=== PATIENT | female | born 1935 | race African-American/Black ===

== ENCOUNTER 2019-09-05 16:03 | Emergency (ER) | payer OTHER ==
[2019-09-05 16:09] VITALS: TEMP 98.3; BMI 36.6
--- NOTE | 2019-09-05 16:49 | PDOC ---
History of Present Illness - General Chief Complaint: Eye Problem Stated Complaint: RIGHT EYE REDNESS/ITCHING Time Seen by Provider: 09/05/19 16:27 History Source: Patient Exam Limitations: No Limitations - History of Present Illness Initial Comments: 09/05/19 16:46 83y F hx of asthma, htn, presenst with complaint of swollen, itchy R eye. it started off with itchiness for 4 days but then started with swelling. Pt had seen her PMD who gave her some antihistamines without significant improvement. She endorses some discharge/crusting when she wakes up in the morning. She endorses nasal congestion but denies any fever/chllls, coughs, body aches, vision changes. Denies any pain, photophobia. Does not wear corrective lenses. No sick contacts Is this a multiple visit Asthma Patient?: Yes Past History - Past Medical History Allergies/Adverse Reactions: Allergies Allergy/AdvReac Type Severity Reaction Status Date / Time No Known Drug Allergies Allergy Verified 09/05/19 16:06 Home Medications: Ambulatory Orders Buspirone HCl [Buspar -] 10 mg PO ASDIR 03/19/15 Albuterol Sulfate [Proair Hfa -] 1 - 2 inh PO Q6H PRN 06/18/15 Atorvastatin Calcium [Lipitor] 10 mg PO DAILY 09/05/19 Carvedilol 3.125 mg PO DAILY 09/05/19 Isosorbide Mononitrate [Isosorbide Mononitrate ER] 30 mg PO DAILY 09/05/19 Meloxicam [Mobic (Nf) -] 15 mg PO DAILY 09/05/19 Meloxicam [Mobic (Nf) -] 15 mg PO DAILY 09/05/19 Montelukast Na [Singulair -] 10 mg PO HS 09/05/19 Polymyxin B Sulf/Trimethoprim [Polymyxin B-Tmp Eye Drops] 1 - 2 drop OU QID #10 ml 09/05/19 Anemia: Yes Asthma: Yes COPD: No CHF: No GI Disorders: Yes HTN: Yes Hypercholesterolemia: Yes Thyroid Disease: No - Psycho Social/Smoking Cessation Hx Smoking History: Never smoked Have you smoked in the past 12 months: No Hx Alcohol Use: No Drug/Substance Use Hx: No Substance Use Type: None Review of Systems - Review of Systems Able to Perform ROS?: Yes Comments:: 09/05/19 17:07 Constitutional - no reported Fever, Chills, HEENT: +eye redness/dischargen/itching no reported vision changes, sore throat Respiratory: no reported cough, sob, hemoptysis Abd/GI: no reported abd pain, nausea, vomiting, skin - no reported bruising, erythema, rash neurological: no reported headache, n *Physical Exam - Vital Signs Last Vital Signs Temp Pulse Resp BP Pulse Ox 98.3 F 63 18 188/115 H 100 09/05/19 16:04 09/05/19 16:04 09/05/19 16:04 09/05/19 16:04 09/05/19 16:04 - Physical Exam Comments: 09/05/19 17:08 GENERAL: The patient is awake, alert, and fully oriented, Nontoxic - in no acute distress. HEAD: Normocephalic, atraumatic. EYES: Injected conjunctive a on right eye, With some crusting. EOMI, visual montalvo intact by confrontation. Mild injection on left conjucntiva ENT: Normal voice, Moist mucous membranes. NECK: Normal range of motion, supple, No cervical lymphadenopathy Medical Decision Making - Medical Decision Making 09/05/19 17:09 We will treat the patient for conjunctivitis with Polytrim. Supportive care at home, Ophtho follow-up if not improved within 3 to 4 days. I discussed the physical exam findings, ancillary test results and final diagnoses with the patient. I answered all of the patient's questions. The patient was satisfied with the care received and felt comfortable with the discharge plan and treatment plan. The patient will call their primary care physician within 24 hours to arrange follow-up and will return to the Emergency Department with any new, persistent or worsening symptoms. 09/05/19 17:13 Not asthma or complaint 09/05/19 17:25 pt noted hypertensive. will give her he revening dose of enalipril Discharge - Discharge Information Problems reviewed: Yes Clinical Impression/Diagnosis: Conjunctivitis Qualifiers: Conjunctivitis type: acute Acute conjunctivitis type: bacterial Laterality: bilateral Qualified Code(s): H10.33 - Unspecified acute conjunctivitis, bilateral Condition: Stable Disposition: HOME - Admission No - Additional Discharge Information Prescriptions: Polymyxin B Sulf/Trimethoprim [Polymyxin B-Tmp Eye Drops] 1 - 2 drop OU QID #10 ml - Follow up/Referral Referrals: Niraj Guerrero MD [Staff Physician] - - Patient Discharge Instructions Patient Printed Discharge Instructions: DI for Conjunctivitis Additional Instructions: Return to the emergency department immediately with ANY new, persistent or worsening symptoms incluing headache, fevers, blurry vision, eye pain or any other concerns. Apply a warm wai to your eye and wipe away and discharge. Use the eye drops as prescribed for 7-10 days. You MUST call and follow up with an eye doctor if symptmos are not improved within 4-5 days for further evaluation of your symptoms. Results were discussed with you. Please make sure your doctor reviews the results of your emergency evaluation. Your Emergency Department visit is not complete without a follow up with your doctor. Print Language: [id number] - Post Discharge Activity
[2019-09-05] MEDS ORDERED: ENALAPRIL MALEATE 10 MG TABLET (FP) PO ONE (17:25)
[2019-09-05 18:20] VITALS: BP 188/90; PULSE 65
== END 2019-09-05 18:21 | disposition home or self-care (01) ==
LOC: FER 16:03
DX: H10.33 Unspecified acute conjunctivitis, bilateral (principal); J45.909 Unspecified asthma, uncomplicated; I10 Essential (primary) hypertension; K92.9 Disease of digestive system, unspecified; E78.00 Pure hypercholesterolemia, unspecified
CPT/HCPCS: 99282-25

== ENCOUNTER 2023-01-24 11:41 | Inpatient (IN) | payer OTHER ==
[2023-01-24] MEDS ORDERED: ASPIRIN 81 MG CHEWABLE TABLETS PO ONE (11:44)
[2023-01-24] MEDS ORDERED: SODIUM CHLORIDE 1,000 ML IV SCH ×2 (11:45)
[2023-01-24] MEDS ORDERED: ASPIRIN 81 MG CHEWABLE TABLETS ONE (12:16)
[2023-01-24 12:31] LABS: BASO % 0.4 % (0-2.0); EOS % 1.2 % (0-4.5); HEMATOCRIT 30.7 % (32.4-45.2); HEMOGLOBIN 9.8 GM/dL (10.7-15.3); LYMPH % 35.4 % (8-40); MCH 25.6 pg (25.7-33.7); MEAN PLT VOLUME 6.8 fl (7.5-11.1); MONO % 9.9 % (3.8-10.2); NEUT % 53.1 % (42.8-82.8); PLATELET COUNT 442 10^3/uL (134-434); RBC 3.84 M/mm3 (3.60-5.2); RDW 17.3 % (11.6-15.6); WHITE BLOOD COUNT 7.5 K/mm3 (4.0-10.0)
[2023-01-24 12:39] LABS: INR 1.03 (0.83-1.09)
[2023-01-24 12:41] LABS: ACTIVATED PTT 29.6 SECONDS (25.2-36.5)
[2023-01-24 12:47] LABS: CHLORIDE 112 mmol/L (98-107); SODIUM 144 mmol/L (136-145)
[2023-01-24 12:49] LABS: ANION GAP 6 MMOL/L (8-16); CALCIUM 8.6 mg/dL (8.5-10.1); CO2 26 mmol/L (21-32)
[2023-01-24 12:51] LABS: BLOOD UREA NITROGEN 27.7 mg/dL (7-18); GLUCOSE,RANDOM 154 mg/dL (74-106)
[2023-01-24 12:53] LABS: CREATININE 1.8 mg/dL (0.55-1.3); SGOT/AST 15 U/L (15-37); SGPT/ALT 11 U/L (13-61)
[2023-01-24 12:54] LABS: CHOLESTEROL 174 mg/dL (50-200); TOT PROT 6.8 g/dl (6.4-8.2); TRIGLYCERIDES 133 mg/dL (0-150)
[2023-01-24 12:55] LABS: BILIRUBIN,TOTAL 0.4 mg/dL (0.2-1); LDL CHOLESTEROL (ONLY SJRH) 88 mg/dL (5-100)
[2023-01-24 12:57] LABS: ALK PHOS 129 U/L (45-117); HDL CHOLESTEROL 67 mg/dL (40-60)
[2023-01-24 14:03] LABS: EPI CELLS 9 /uL (0-25.1); HYALINE CASTS 0 /uL (0-3.1); PH,URINE 7.5 (5.0-8.0); URINE APPEARANCE CLOUDY; URINE BACTERIA 6030 /uL (0-1359); URINE BILIRUBIN NEGATIVE (NEGATIVE); URINE COLOR YELLOW; URINE GLUCOSE (UA) NEGATIVE (NEGATIVE); URINE KETONE NEGATIVE (NEGATIVE); URINE LEUK ESTERASE 3+ (NEGATIVE); URINE NITRITE POSITIVE (NEGATIVE); URINE PROTEIN TRACE (NEGATIVE); URINE RBC 14 /uL (0-23.9); URINE UROBILINOGEN 0.2 mg/dL (0.2-1.0); URINE WBC 161 /uL (0-25.8)
[2023-01-24] MEDS ORDERED: CEFTRIAXONE 1,000 MG in DEXTROSE 5%-WATER - 50 ML IVPB ONE (15:00)
[2023-01-24] MEDS ORDERED: CEFTRIAXONE 1 GM/50 ML BAG ONE (15:09)
[2023-01-24] MEDS ORDERED: DOCUSATE SODIUM 100 MG CAPSULE (FP) PO PRN (22:31)
[2023-01-25 08:07] LABS: BASO % 0.5 % (0-2.0); EOS % 2.1 % (0-4.5); HEMATOCRIT 30.1 % (32.4-45.2); HEMOGLOBIN 9.7 GM/dL (10.7-15.3); LYMPH % 32.1 % (8-40); MCH 25.8 pg (25.7-33.7); MCHC 32.1 g/dl (32.0-36.0); MEAN CELL VOLUME 80.5 fl (80-96); MEAN PLT VOLUME 7.1 fl (7.5-11.1); MONO % 12.5 % (3.8-10.2); NEUT % 52.8 % (42.8-82.8); PLATELET COUNT 413 10^3/uL (134-434); RBC 3.74 M/mm3 (3.60-5.2); RDW 17.5 % (11.6-15.6); WHITE BLOOD COUNT 7.2 K/mm3 (4.0-10.0)
[2023-01-25 08:28] LABS: CALCIUM 8.9 mg/dL (8.5-10.1)
[2023-01-25 08:29] LABS: BLOOD UREA NITROGEN 23.9 mg/dL (7-18)
[2023-01-25 08:31] LABS: BILIRUBIN,TOTAL 0.3 mg/dL (0.2-1); TOT PROT 6.6 g/dl (6.4-8.2)
[2023-01-25 08:32] LABS: CREATININE 1.5 mg/dL (0.55-1.3)
[2023-01-25] MEDS: CEFTRIAXONE 1 GM in DEXTROSE 5%-WATER - 50 ML IVPB SCH (09:41)
[2023-01-25] MEDS: ATORVASTATIN CA 40 MG TABLET (FP) PO SCH (09:42)
[2023-01-25] MEDS: ISOSORBIDE MONONITRATE 30 MG TAB.SR.24H (FP) PO SCH (09:42)
[2023-01-25] MEDS: FOLIC ACID 1 MG TABLET (FP) PO SCH (09:42)
[2023-01-25] MEDS: amLODIPine BESYLATE 5 MG TABLET (FP) PO SCH (09:42)
[2023-01-25] MEDS: ASPIRIN COATED 81 MG TABLET.EC PO SCH (09:42)
[2023-01-25] MEDS: ENOXAPARIN NA (PORCINE) 40 MG/0.4 ML DISP.SYRIN SQ SCH (09:42)
[2023-01-25] MEDS: ENALAPRIL MALEATE 10 MG TABLET PO SCH (09:42)
[2023-01-25] MEDS ORDERED: FUROSEMIDE 20 MG TABLET (FP) PO SCH (10:00)
[2023-01-25] MEDS ORDERED: ATORVASTATIN CA 10 MG TABLET (FP) PO SCH (10:00)
[2023-01-25 12:43] VITALS: BMI 30.4
[2023-01-25] MEDS ORDERED: SODIUM CHLORIDE 0.45% 1,000 ML IV SCH (12:45)
[2023-01-25] MEDS: MONTELUKAST NA 10 MG TABLET PO SCH (21:27)
[2023-01-25 22:31] VITALS: RESP 20
[2023-01-26] MEDS: ENALAPRIL MALEATE 10 MG TABLET PO SCH (09:36)
[2023-01-26] MEDS: ATORVASTATIN CA 40 MG TABLET (FP) PO SCH (09:37)
[2023-01-26] MEDS: ISOSORBIDE MONONITRATE 30 MG TAB.SR.24H (FP) PO SCH (09:37)
[2023-01-26] MEDS: CEFTRIAXONE 1 GM in DEXTROSE 5%-WATER - 50 ML IVPB SCH (09:37)
[2023-01-26] MEDS: ASPIRIN COATED 81 MG TABLET.EC PO SCH (09:37)
[2023-01-26] MEDS: amLODIPine BESYLATE 5 MG TABLET (FP) PO SCH (09:37)
[2023-01-26] MEDS: FOLIC ACID 1 MG TABLET (FP) PO SCH (09:37)
[2023-01-26] MEDS: ENOXAPARIN NA (PORCINE) 40 MG/0.4 ML DISP.SYRIN SQ SCH (09:37)
[2023-01-26] MEDS: MONTELUKAST NA 10 MG TABLET PO SCH (21:31)
[2023-01-27] MEDS: ISOSORBIDE MONONITRATE 30 MG TAB.SR.24H (FP) PO SCH (09:09)
[2023-01-27] MEDS: ENALAPRIL MALEATE 10 MG TABLET PO SCH (09:09)
[2023-01-27] MEDS: ATORVASTATIN CA 40 MG TABLET (FP) PO SCH (09:09)
[2023-01-27] MEDS: FOLIC ACID 1 MG TABLET (FP) PO SCH (09:09)
[2023-01-27] MEDS: amLODIPine BESYLATE 5 MG TABLET (FP) PO SCH (09:09)
[2023-01-27] MEDS: CEFTRIAXONE 1 GM in DEXTROSE 5%-WATER - 50 ML IVPB SCH (09:09)
[2023-01-27] MEDS: ENOXAPARIN NA (PORCINE) 40 MG/0.4 ML DISP.SYRIN SQ SCH (09:10)
[2023-01-27] MEDS ORDERED: CLOPIDOGREL BISULFATE 75 MG TABLET (FP) PO SCH (10:00)
[2023-01-27 10:04] LABS: BASO % 0.8 % (0-2.0); EOS % 3.1 % (0-4.5); HEMOGLOBIN 9.6 GM/dL (10.7-15.3); LYMPH % 24.6 % (8-40); MCH 25.7 pg (25.7-33.7); MEAN CELL VOLUME 80.2 fl (80-96); MONO % 10.8 % (3.8-10.2); NEUT % 60.7 % (42.8-82.8); PLATELET COUNT 378 10^3/uL (134-434); RBC 3.75 M/mm3 (3.60-5.2); RDW 17.2 % (11.6-15.6); WHITE BLOOD COUNT 6.5 K/mm3 (4.0-10.0)
[2023-01-27 10:33] LABS: ALBUMIN 2.9 g/dl (3.4-5.0); BLOOD UREA NITROGEN 21.6 mg/dL (7-18)
[2023-01-27 10:35] LABS: CREATININE 1.3 mg/dL (0.55-1.3)
[2023-01-27 10:37] LABS: BILIRUBIN,TOTAL 0.3 mg/dL (0.2-1); TOT PROT 6.4 g/dl (6.4-8.2)
[2023-01-27 11:54] VITALS: TEMP 97.6
[2023-01-27 14:46] VITALS: BP 143/77; PULSE 106
== END 2023-01-27 17:48 | disposition home health service (06) | DRG 65 ==
LOC: JER 11:41 → JERBED 15:19 → J4W 21:49
PROVIDERS: ADMIT Family Medicine; ATTEND Family Medicine
DX: I63.89 Other cerebral infarction (principal); E87.0 Hyperosmolality and hypernatremia; N17.9 Acute kidney failure, unspecified; N39.0 Urinary tract infection, site not specified; I69.351 Hemiplegia and hemiparesis following cerebral infarction affecting right dominant side; R47.01 Aphasia; I10 Essential (primary) hypertension; E78.5 Hyperlipidemia, unspecified; J45.909 Unspecified asthma, uncomplicated; K21.9 Gastro-esophageal reflux disease without esophagitis; D64.9 Anemia, unspecified; H53.2 Diplopia; R01.1 Cardiac murmur, unspecified
CPT/HCPCS: 0241U-QW; 36415; 70450-TC; 70551-TC; 80053; 80061; 81003; 82550; 82728; 82962; 83036; 83540; 83550; 85025; 85610; 85730; 86850; 86900; 86901; 87086; 93005; 93010; 93306-TC; 93880-TC; 97116-GP; 97162-GP; 99291

== ENCOUNTER 2023-09-07 11:52 | Emergency (ER) | payer OTHER ==
[2023-09-07 12:03] VITALS: TEMP 97.7; BMI 26.7
[2023-09-07] MEDS ORDERED: SODIUM CHLORIDE 1,000 ML IV SCH (13:00)
[2023-09-07 14:04] LABS: BASO % 0.7 % (0-2.0); EOS % 0.7 % (0-4.5); HEMATOCRIT 33.4 % (32.4-45.2); HEMOGLOBIN 10.7 GM/dL (10.7-15.3); MCH 26.3 pg (25.7-33.7); MCHC 32.1 g/dl (32.0-36.0); MEAN CELL VOLUME 81.9 fl (80-96); MEAN PLT VOLUME 7.6 fl (7.5-11.1); MONO % 9.6 % (3.8-10.2); PLATELET COUNT 420 10^3/uL (134-434); RBC 4.07 M/mm3 (3.60-5.2); RDW 16.8 % (11.6-15.6); WHITE BLOOD COUNT 6.7 K/mm3 (4.0-10.0)
[2023-09-07 14:18] LABS: ACTIVATED PTT 33.1 SECONDS (25.2-36.5); INR 1.01 (0.83-1.09); PROTHROMBIN TIME (PATIENT) 11.7 SEC (9.7-13.0)
[2023-09-07 14:52] LABS: POTASSIUM 3.6 mmol/L (3.5-5.1)
[2023-09-07 14:53] LABS: CALCIUM 9.2 mg/dL (8.5-10.1)
[2023-09-07 14:54] LABS: ALBUMIN 3.4 g/dl (3.4-5.0)
[2023-09-07 14:56] LABS: BLOOD UREA NITROGEN 18.1 mg/dL (7-18)
[2023-09-07 14:58] LABS: CREATININE 1.3 mg/dL (0.55-1.3)
[2023-09-07 14:59] LABS: TOT PROT 7.2 g/dl (6.4-8.2)
[2023-09-07 15:06] LABS: BILIRUBIN,TOTAL 0.5 mg/dL (0.2-1)
[2023-09-07] MEDS ORDERED: ACETAMINOPHEN 1000 MG/100 ML BAG IVPB ONE (15:23)
[2023-09-07] MEDS ORDERED: ACETAMINOPHEN INJECTION 100 ML IVPB ONE (16:09)
[2023-09-07] MEDS ORDERED: LIDOCAINE 4% PATCH TP ONE ×2 (16:21→17:51)
[2023-09-07] MEDS ORDERED: traMADol HCL 50 MG TABLET PO ONE (17:55)
[2023-09-07] MEDS ORDERED: traMADol HCL 50 MG TABLET ONE (18:56)
[2023-09-07 20:21] VITALS: BP 150/82; PULSE 89; RESP 16
[2023-09-07] MEDS ORDERED: LIDOCAINE PATCH REMOVAL MC SCH (22:00)
== END 2023-09-07 20:40 | disposition home or self-care (01) ==
LOC: JERFT 11:52 → JER 11:52
PROC: 3E033NZ Introduction of Analgesics, Hypnotics, Sedatives into Peripheral Vein, Percutaneous Approach (ICD-10-PCS; principal; 2023-09-07)
DX: M25.551 Pain in right hip (principal)
CPT/HCPCS: 36415; 70450-TC; 72131-TC; 72192-TC; 73560-TC-RT-FY; 80053; 80061; 82550; 83036; 84484; 85025; 85610; 85730; 86850; 86900; 86901; 93005; 93010; 96374; 99285-25

== ENCOUNTER 2023-12-01 13:47 | Inpatient (IN) | payer OTHER ==
[2023-12-01 13:56] VITALS: BMI 25.5
[2023-12-01 15:24] LABS: URINE APPEARANCE CLOUDY; URINE BILIRUBIN NEGATIVE (NEGATIVE); URINE COLOR STRAW; URINE GLUCOSE (UA) NEGATIVE (NEGATIVE); URINE KETONE NEGATIVE (NEGATIVE); URINE PROTEIN 2+ (NEGATIVE); URINE UROBILINOGEN NORMAL mg/dL (0.2-1.0)
[2023-12-01 15:25] LABS: URINE LEUK ESTERASE 2+ (NEGATIVE); URINE NITRITE NEGATIVE (NEGATIVE)
[2023-12-01 15:50] LABS: URINE RBC 2 /hpf (0-4)
[2023-12-01] MEDS ORDERED: CEFTRIAXONE 1,000 MG in DEXTROSE 5%-WATER - 50 ML IVPB ONE (15:50)
[2023-12-01 15:53] LABS: EPI CELLS 1 /HPF; HYALINE CASTS NONE SEEN /lpf; URINE CRYSTALS NONE SEEN /hpf (NEGATIVE); YEAST NONE SEEN
[2023-12-01 15:54] LABS: URINE BACTERIA FEW /hpf (NEGATIVE); URINE WBC MANY (NEGATIVE)
[2023-12-01 15:57] LABS: HEMATOCRIT 33.6 % (32.4-45.2); HEMOGLOBIN 10.7 GM/dL (10.7-15.3); MCH 27.2 pg (25.7-33.7); MCHC 31.8 g/dl (32.0-36.0); MEAN CELL VOLUME 85.5 fl (80-96); MEAN PLT VOLUME 7.4 fl (7.5-11.1); PLATELET COUNT 468 10^3/uL (134-434); RBC 3.93 M/mm3 (3.60-5.2); RDW 19.3 % (11.6-15.6); WHITE BLOOD COUNT 5.5 K/mm3 (4.0-10.0)
[2023-12-01] MEDS ORDERED: CEFTRIAXONE 1 GM/50 ML BAG ONE (16:07)
[2023-12-01] MEDS ORDERED: SODIUM CHLORIDE 0.9% 500 ML INFUS.BAG IV ONE ×2 (16:17→16:40)
[2023-12-01 16:22] LABS: POTASSIUM 4.9 mmol/L (3.5-5.1)
[2023-12-01 16:24] LABS: ALBUMIN 3.4 g/dl (3.4-5.0); CALCIUM 9.8 mg/dL (8.5-10.1)
[2023-12-01 16:25] LABS: BLOOD UREA NITROGEN 47.3 mg/dL (7-18)
[2023-12-01 16:27] LABS: CREATININE 2.4 mg/dL (0.55-1.3)
[2023-12-01 16:29] LABS: BILIRUBIN,TOTAL 0.1 mg/dL (0.2-1); TOT PROT 7.1 g/dl (6.4-8.2)
[2023-12-01 16:38] LABS: ANISOCYTOSIS 1+; MACROCYTOSIS 0; OVALOCYTE 1+; TARGET CELLS 1+; TEAR DROP CELLS 1+
[2023-12-01] MEDS ORDERED: SODIUM CHLORIDE 0.9% 500 ML INFUS.BAG IV STA (17:59)
[2023-12-01] MEDS ORDERED: DOCUSATE SODIUM 100 MG CAPSULE (FP) PO PRN (18:17)
[2023-12-01] MEDS ORDERED: PANTOPRAZOLE 20 MG TABLET PO PRN (18:17)
[2023-12-01] MEDS ORDERED: MONTELUKAST NA 10 MG TABLET ONE (22:58)
[2023-12-01] MEDS: MONTELUKAST NA 10 MG TABLET PO SCH (23:00)
[2023-12-01] MEDS: POTASSIUM CHLORIDE 10 MEQ in SODIUM CHLORIDE 0.45% 1,000 ML IVPB SCH (23:00)
[2023-12-02 08:39] LABS: POTASSIUM 4.4 mmol/L (3.5-5.1)
[2023-12-02 08:46] LABS: BLOOD UREA NITROGEN 39.2 mg/dL (7-18); CALCIUM 8.9 mg/dL (8.5-10.1); MAGNESIUM 1.7 mg/dL (1.8-2.4)
[2023-12-02 08:47] LABS: CREATININE 1.8 mg/dL (0.55-1.3)
[2023-12-02 08:48] LABS: BILIRUBIN,TOTAL 0.2 mg/dL (0.2-1)
[2023-12-02 08:49] LABS: HEMATOCRIT 30.1 % (32.4-45.2); HEMOGLOBIN 9.5 GM/dL (10.7-15.3); MCH 26.8 pg (25.7-33.7); MCHC 31.6 g/dl (32.0-36.0); MEAN CELL VOLUME 84.8 fl (80-96); MEAN PLT VOLUME 7.4 fl (7.5-11.1); PLATELET COUNT 425 10^3/uL (134-434); RBC 3.56 M/mm3 (3.60-5.2); RDW 19.4 % (11.6-15.6); TOT PROT 6.2 g/dl (6.4-8.2); WHITE BLOOD COUNT 4.2 K/mm3 (4.0-10.0)
[2023-12-02 09:50] LABS: ANISOCYTOSIS 1+; MACROCYTOSIS 0
[2023-12-02] MEDS ORDERED: CEFTRIAXONE 1 GM/50 ML BAG ONE (11:52)
[2023-12-02] MEDS: CEFTRIAXONE 1 GM in DEXTROSE 5%-WATER - 50 ML IVPB SCH (12:09)
[2023-12-02] MEDS: ENALAPRIL MALEATE 10 MG TABLET PO SCH (12:09)
[2023-12-02] MEDS: amLODIPine BESYLATE 5 MG TABLET (FP) PO SCH (12:09)
[2023-12-02] MEDS: ISOSORBIDE MONONITRATE 30 MG TAB.SR.24H (FP) PO SCH (12:09)
[2023-12-02] MEDS: CLOPIDOGREL BISULFATE 75 MG TABLET (FP) PO SCH (12:09)
[2023-12-02] MEDS: FOLIC ACID 1 MG TABLET (FP) PO SCH (12:09)
[2023-12-02] MEDS: POTASSIUM CHLORIDE 10 MEQ in SODIUM CHLORIDE 0.45% 1,000 ML IVPB SCH ×2 (12:09→21:46)
[2023-12-02] MEDS: ATORVASTATIN CA 40 MG TABLET (FP) PO SCH (21:45)
[2023-12-02] MEDS: MONTELUKAST NA 10 MG TABLET PO SCH (21:45)
[2023-12-03] MEDS ORDERED: ACETAMINOPHEN 1000 MG/100 ML BAG IVPB ONE (06:30)
[2023-12-03] MEDS: FOLIC ACID 1 MG TABLET (FP) PO SCH (09:35)
[2023-12-03] MEDS: POTASSIUM CHLORIDE 10 MEQ in SODIUM CHLORIDE 0.45% 1,000 ML IVPB SCH ×2 (09:35→15:27)
[2023-12-03] MEDS: CEFTRIAXONE 1 GM in DEXTROSE 5%-WATER - 50 ML IVPB SCH (09:35)
[2023-12-03] MEDS: amLODIPine BESYLATE 5 MG TABLET (FP) PO SCH (09:35)
[2023-12-03] MEDS: CLOPIDOGREL BISULFATE 75 MG TABLET (FP) PO SCH (09:35)
[2023-12-03] MEDS: ISOSORBIDE MONONITRATE 30 MG TAB.SR.24H (FP) PO SCH (09:35)
[2023-12-03] MEDS: ENALAPRIL MALEATE 10 MG TABLET PO SCH (09:35)
[2023-12-03 10:43] LABS: POTASSIUM 4.3 mmol/L (3.5-5.1)
[2023-12-03 10:45] LABS: ALBUMIN 2.7 g/dl (3.4-5.0); CALCIUM 8.6 mg/dL (8.5-10.1)
[2023-12-03 10:46] LABS: BLOOD UREA NITROGEN 33.3 mg/dL (7-18)
[2023-12-03 10:48] LABS: CREATININE 1.7 mg/dL (0.55-1.3)
[2023-12-03 10:50] LABS: BILIRUBIN,TOTAL 0.3 mg/dL (0.2-1)
[2023-12-03 10:53] LABS: BASO % 0.3 % (0-2.0); EOS % 2.7 % (0-4.5); HEMATOCRIT 28.9 % (32.4-45.2); HEMOGLOBIN 9.2 GM/dL (10.7-15.3); LYMPH % 38.6 % (8-40); MCH 26.9 pg (25.7-33.7); MCHC 31.9 g/dl (32.0-36.0); MEAN CELL VOLUME 84.4 fl (80-96); MEAN PLT VOLUME 7.4 fl (7.5-11.1); MONO % 11.8 % (3.8-10.2); NEUT % 46.6 % (42.8-82.8); PLATELET COUNT 423 10^3/uL (134-434); RBC 3.43 M/mm3 (3.60-5.2); RDW 19.2 % (11.6-15.6); WHITE BLOOD COUNT 4.9 K/mm3 (4.0-10.0)
[2023-12-03] MEDS: MONTELUKAST NA 10 MG TABLET PO SCH (21:23)
[2023-12-03] MEDS: CEPHALEXIN MONOHYDRATE 500 MG CAPSULE (UD) PO SCH (21:23)
[2023-12-03] MEDS: ATORVASTATIN CA 40 MG TABLET (FP) PO SCH (21:23)
[2023-12-04] MEDS: POTASSIUM CHLORIDE 10 MEQ in SODIUM CHLORIDE 0.45% 1,000 ML IVPB SCH ×2 (00:16→13:57)
[2023-12-04] MEDS: CEPHALEXIN MONOHYDRATE 500 MG CAPSULE (UD) PO SCH ×2 (09:12→21:09)
[2023-12-04] MEDS: amLODIPine BESYLATE 5 MG TABLET (FP) PO SCH (09:12)
[2023-12-04] MEDS: FOLIC ACID 1 MG TABLET (FP) PO SCH (09:12)
[2023-12-04] MEDS: ENALAPRIL MALEATE 10 MG TABLET PO SCH (09:12)
[2023-12-04] MEDS: CLOPIDOGREL BISULFATE 75 MG TABLET (FP) PO SCH (09:12)
[2023-12-04] MEDS: ISOSORBIDE MONONITRATE 30 MG TAB.SR.24H (FP) PO SCH (09:12)
[2023-12-04] MEDS: ATORVASTATIN CA 40 MG TABLET (FP) PO SCH (21:08)
[2023-12-04] MEDS: MONTELUKAST NA 10 MG TABLET PO SCH (21:08)
[2023-12-05] MEDS: POTASSIUM CHLORIDE 10 MEQ in SODIUM CHLORIDE 0.45% 1,000 ML IVPB SCH ×2 (03:01→18:06)
[2023-12-05] MEDS: FOLIC ACID 1 MG TABLET (FP) PO SCH (09:43)
[2023-12-05] MEDS: CEPHALEXIN MONOHYDRATE 500 MG CAPSULE (UD) PO SCH ×2 (09:43→21:59)
[2023-12-05] MEDS: ISOSORBIDE MONONITRATE 30 MG TAB.SR.24H (FP) PO SCH (09:43)
[2023-12-05] MEDS: ENALAPRIL MALEATE 10 MG TABLET PO SCH (09:43)
[2023-12-05] MEDS: amLODIPine BESYLATE 5 MG TABLET (FP) PO SCH (09:43)
[2023-12-05] MEDS: CLOPIDOGREL BISULFATE 75 MG TABLET (FP) PO SCH (09:43)
[2023-12-05] MEDS: MONTELUKAST NA 10 MG TABLET PO SCH (21:59)
[2023-12-05] MEDS: ATORVASTATIN CA 40 MG TABLET (FP) PO SCH (21:59)
[2023-12-06] MEDS: POTASSIUM CHLORIDE 10 MEQ in SODIUM CHLORIDE 0.45% 1,000 ML IVPB SCH (01:57)
[2023-12-06] MEDS: amLODIPine BESYLATE 5 MG TABLET (FP) PO SCH (09:32)
[2023-12-06] MEDS: ENALAPRIL MALEATE 10 MG TABLET PO SCH (09:33)
[2023-12-06] MEDS: FOLIC ACID 1 MG TABLET (FP) PO SCH (09:33)
[2023-12-06] MEDS: CLOPIDOGREL BISULFATE 75 MG TABLET (FP) PO SCH (09:33)
[2023-12-06] MEDS: CEPHALEXIN MONOHYDRATE 500 MG CAPSULE (UD) PO SCH (09:33)
[2023-12-06] MEDS: ISOSORBIDE MONONITRATE 30 MG TAB.SR.24H (FP) PO SCH (09:33)
[2023-12-06] MEDS ORDERED: IRON SUCROSE INJECTION 200 MG in SODIUM CHLORIDE 90 ML IVPB ONE (10:00)
[2023-12-06 10:50] LABS: BASO % 0.6 % (0-2.0); EOS % 3.4 % (0-4.5); HEMATOCRIT 28.6 % (32.4-45.2); HEMOGLOBIN 9.1 GM/dL (10.7-15.3); LYMPH % 41.6 % (8-40); MCHC 31.9 g/dl (32.0-36.0); MEAN CELL VOLUME 84.9 fl (80-96); MEAN PLT VOLUME 7.1 fl (7.5-11.1); MONO % 9.3 % (3.8-10.2); NEUT % 45.1 % (42.8-82.8); PLATELET COUNT 395 10^3/uL (134-434); RBC 3.37 M/mm3 (3.60-5.2); RDW 19.6 % (11.6-15.6); WHITE BLOOD COUNT 4.6 K/mm3 (4.0-10.0)
[2023-12-06 11:03] LABS: POTASSIUM 4.9 mmol/L (3.5-5.1)
[2023-12-06 11:05] LABS: CALCIUM 9.2 mg/dL (8.5-10.1)
[2023-12-06 11:06] LABS: ALBUMIN 2.7 g/dl (3.4-5.0); BLOOD UREA NITROGEN 19.4 mg/dL (7-18)
[2023-12-06 11:08] LABS: CREATININE 1.1 mg/dL (0.55-1.3)
[2023-12-06 11:10] LABS: BILIRUBIN,TOTAL 0.2 mg/dL (0.2-1)
[2023-12-06 14:56] VITALS: BP 141/75; PULSE 92; RESP 18; TEMP 98
== END 2023-12-06 15:08 | disposition home or self-care (01) | DRG 683 ==
LOC: JER 13:47 → JERBED 16:40 → OBSVTOIN 18:18 → J8W 12-02 12:51
PROVIDERS: ADMIT Family Medicine; ATTEND Family Medicine
DX: N17.9 Acute kidney failure, unspecified (principal); N39.0 Urinary tract infection, site not specified; E78.00 Pure hypercholesterolemia, unspecified; B96.4 Proteus (mirabilis) (morganii) as the cause of diseases classified elsewhere; K21.9 Gastro-esophageal reflux disease without esophagitis; D64.9 Anemia, unspecified; J45.909 Unspecified asthma, uncomplicated; E78.5 Hyperlipidemia, unspecified; K59.00 Constipation, unspecified; I12.9 Hypertensive chronic kidney disease with stage 1 through stage 4 chronic kidney disease, or unspecified chronic kidney disease; N18.9 Chronic kidney disease, unspecified; Z86.73 Personal history of transient ischemic attack (TIA), and cerebral infarction without residual deficits
CPT/HCPCS: 36415; 76775-TC; 80053; 81003; 82607; 82728; 82962; 83540; 83550; 83735; 84443; 85025; 87086; 87186; 97116-GP; 97161-GP; 99285-25; G0378; J1756

== ENCOUNTER 2024-07-12 01:13 | Inpatient (IN) | payer OTHER ==
[2024-07-12] MEDS: ACETAMINOPHEN 1000 MG/100 ML BAG IVPB ONE (02:10)
[2024-07-12] MEDS ORDERED: MAG HYDROX/AL HYDROX/SIMETH 30 ML UNIT-DOSE CUP ONE (02:30)
[2024-07-12] MEDS ORDERED: ACETAMINOPHEN INJECTION 100 ML IVPB ONE ×2 (02:30→10:11)
[2024-07-12] MEDS ORDERED: FAMOTIDINE 20 MG/50 ML IVPB 20 MG/50 ML MG IVPB ONE (02:30)
[2024-07-12] MEDS: SODIUM CHLORIDE 0.9% 500 ML INFUS.BAG IV ONE (02:57)
[2024-07-12] MEDS: MAG HYDROX/AL HYDROX/SIMETH 30 ML UNIT-DOSE CUP PO ONE (02:58)
[2024-07-12 03:05] LABS: BASO % 0.2 % (0-2.0); EOS % 0.1 % (0-4.5); HEMATOCRIT 34.9 % (32.4-45.2); HEMOGLOBIN 11.3 GM/dL (10.7-15.3); LYMPH % 11.4 % (8-40); MCH 26.9 pg (25.7-33.7); MCHC 32.5 g/dl (32.0-36.0); MEAN CELL VOLUME 82.7 fl (80-96); MEAN PLT VOLUME 7.7 fl (7.5-11.1); MONO % 2.6 % (3.8-10.2); NEUT % 85.7 % (42.8-82.8); PLATELET COUNT 335 10^3/uL (134-434); RBC 4.22 M/mm3 (3.60-5.2); RDW 16.3 % (11.6-15.6); WHITE BLOOD COUNT 9.3 K/mm3 (4.0-10.0)
[2024-07-12 03:17] LABS: INR 0.95 (0.83-1.09); PROTHROMBIN TIME (PATIENT) 10.8 SEC (9.7-13.0)
[2024-07-12 03:19] LABS: ACTIVATED PTT 19.8 SECONDS (25.2-36.5)
[2024-07-12 03:22] LABS: POTASSIUM 4.4 mmol/L (3.5-5.1)
[2024-07-12 03:25] LABS: ALBUMIN 3.6 g/dl (3.4-5.0); BLOOD UREA NITROGEN 27.7 mg/dL (7-18); CALCIUM 9.4 mg/dL (8.5-10.1)
[2024-07-12 03:28] LABS: CREATININE 1.4 mg/dL (0.55-1.3)
[2024-07-12 03:29] LABS: BILIRUBIN,TOTAL 0.4 mg/dL (0.2-1); TOT PROT 7.2 g/dl (6.4-8.2)
[2024-07-12] MEDS: FAMOTIDINE 20 MG/50 ML IVPB 20 MG/50 ML MG IVPB ONE (05:04)
[2024-07-12] MEDS ORDERED: morphine SULFATE 4 MG/ML VIAL ONE (05:37)
[2024-07-12] MEDS: morphine CARPU-JECT 4 MG/1 ML DISP.SYRIN IVPUSH ONE (05:50)
[2024-07-12] MEDS ORDERED: DOCUSATE SODIUM 100 MG CAPSULE (FP) PO PRN (06:02)
[2024-07-12] MEDS ORDERED: MORPHINE SULFATE 2 MG/ML SYRINGE IVPUSH PRN ×2 (06:02→09:32)
[2024-07-12] MEDS ORDERED: ACETAMINOPHEN 1000 MG/100 ML BAG IVPB PRN (06:11)
[2024-07-12] MEDS ORDERED: PROPOFOL 20 ML ONE (06:16)
[2024-07-12] MEDS ORDERED: SUCCINYLCHOLINE CHLORIDE 200 MG/10 ML SYRINGE ONE (06:16)
[2024-07-12 07:06] LABS: LACTIC ACID 2.5 mmol/L (0.4-2.0)
[2024-07-12] MEDS ORDERED: ROCURONIUM BROMIDE 50 MG/5 ML SYRINGE ONE (07:19)
[2024-07-12] MEDS: cefoTEtan DISODIUM 2 GM VIAL (RESTRICTED TO ID) IVPB ONE (07:30)
[2024-07-12] MEDS ORDERED: cefOXitin SODIUM 2 GM VIAL (RESTRICTED TO ID) IVPB ONE (07:42)
[2024-07-12] MEDS ORDERED: SUGAMMADEX SODIUM 200 MG/2 ML VIAL ONE ×2 (08:27→08:54)
[2024-07-12] MEDS: BUPIVACAINE HCL/PF 0.25% (2.5MG/ML) 10 ML VIAL IJ ONE (08:55)
[2024-07-12] MEDS ORDERED: ONDANSETRON 4 MG/2 ML VIAL IVPUSH PRN ×2 (09:21→09:32)
[2024-07-12] MEDS: LACTATED RINGERS SOLUTION 1,000 ML IV SCH ×2 (10:10→10:14)
[2024-07-12] MEDS: ACETAMINOPHEN 1000 MG/100 ML BAG IVPB PRN (10:13)
[2024-07-12] MEDS: SODIUM CHLORIDE 1,000 ML IV SCH (10:15)
[2024-07-12 12:36] VITALS: BMI 28.5
[2024-07-12 13:56] LABS: EPI CELLS >36 /uL (0-25.1); HYALINE CASTS 27 /uL (0-3.1); PH,URINE 6.5 (5.0-8.0); URINE APPEARANCE TURBID; URINE BACTERIA >9,000 /uL (0-1359); URINE BILIRUBIN NEGATIVE (NEGATIVE); URINE COLOR YELLOW; URINE GLUCOSE (UA) NEGATIVE (NEGATIVE); URINE KETONE TRACE (NEGATIVE); URINE LEUK ESTERASE 1+ (NEGATIVE); URINE NITRITE NEGATIVE (NEGATIVE); URINE PROTEIN 2+ (NEGATIVE); URINE RBC 121 /uL (0-23.9); URINE UROBILINOGEN 0.2 mg/dL (0.2-1.0); URINE WBC 1917 /uL (0-25.8)
[2024-07-12 14:08] LABS: LACTIC ACID 2.4 mmol/L (0.4-2.0)
[2024-07-12] MEDS: AMINO ACIDS 4.25%/D5W 1,000 ML IV SCH (14:12)
[2024-07-13] MEDS: FLUTICASONE PROP 0.05% 16 GM NASAL SPRAY NS ONE (03:53)
[2024-07-13 07:56] LABS: HEMATOCRIT 29.9 % (32.4-45.2); HEMOGLOBIN 9.6 GM/dL (10.7-15.3); MCH 26.8 pg (25.7-33.7); MCHC 32.2 g/dl (32.0-36.0); MEAN CELL VOLUME 83.3 fl (80-96); MEAN PLT VOLUME 8.4 fl (7.5-11.1); PLATELET COUNT 279 10^3/uL (134-434); RBC 3.59 M/mm3 (3.60-5.2); RDW 15.7 % (11.6-15.6); WHITE BLOOD COUNT 21.1 K/mm3 (4.0-10.0)
[2024-07-13 08:14] LABS: POTASSIUM 4.1 mmol/L (3.5-5.1)
[2024-07-13 08:18] LABS: BLOOD UREA NITROGEN 30.4 mg/dL (7-18); CALCIUM 8.5 mg/dL (8.5-10.1)
[2024-07-13 08:19] LABS: MAGNESIUM 1.8 mg/dL (1.8-2.4)
[2024-07-13 08:21] LABS: BILIRUBIN,TOTAL 0.4 mg/dL (0.2-1); TOT PROT 5.6 g/dl (6.4-8.2)
[2024-07-13 08:22] LABS: CREATININE 1.2 mg/dL (0.55-1.3); PHOSPHOROUS 3.5 mg/dL (2.5-4.9)
[2024-07-13 08:24] LABS: IRON SERUM 8 ug/dL (50-175)
[2024-07-13 08:25] LABS: TOTAL IRON BINDING CAPACITY 191 ug/dL (250-450)
[2024-07-13 08:29] LABS: ALBUMIN 2.8 g/dl (3.4-5.0)
[2024-07-13 09:54] LABS: ANISOCYTOSIS 0; HELMET CELLS 0; HOWELL-JOLLY BODIES 0; MACROCYTOSIS 0; OVALOCYTE 0; ROULEAU 0; SICKELED CELLS 0; TARGET CELLS 0; TEAR DROP CELLS 0; TOXIC GRANULATION 0
[2024-07-13] MEDS: VANCOMYCIN/WATER FOR INJ (PEG) 1,000 MG/200 ML BAG IVPB ONE (12:10)
[2024-07-13] MEDS: ACETAMINOPHEN 1000 MG/100 ML BAG IVPB SCH (13:15)
[2024-07-13] MEDS: VANCOMYCIN/WATER FOR INJ (PEG) 1,000 MG/200 ML BAG IVPB SCH (13:57)
[2024-07-13] MEDS: PIPERACILLIN/TAZOB 3.375 GM 3.375 GM in DEXTROSE 5%-WATER - 50 ML IVPB SCH (14:02)
[2024-07-13] MEDS: AMINO ACIDS 4.25%/D5W 1,000 ML IV SCH (14:58)
[2024-07-13] MEDS: HEPARIN NA (PORCINE) 5,000 UNITS/ML 1ML VIAL SQ SCH (21:37)
[2024-07-14 08:11] LABS: BASO % 0.3 % (0-2.0); EOS % 0.2 % (0-4.5); HEMATOCRIT 28.3 % (32.4-45.2); HEMOGLOBIN 8.9 GM/dL (10.7-15.3); LYMPH % 17.1 % (8-40); MCH 26.5 pg (25.7-33.7); MCHC 31.5 g/dl (32.0-36.0); MEAN CELL VOLUME 84.1 fl (80-96); MEAN PLT VOLUME 8.7 fl (7.5-11.1); MONO % 6.5 % (3.8-10.2); NEUT % 75.9 % (42.8-82.8); PLATELET COUNT 244 10^3/uL (134-434); RBC 3.36 M/mm3 (3.60-5.2); RDW 15.9 % (11.6-15.6); WHITE BLOOD COUNT 16.5 K/mm3 (4.0-10.0)
[2024-07-14 08:37] LABS: POTASSIUM 4.4 mmol/L (3.5-5.1)
[2024-07-14 08:42] LABS: CALCIUM 8.7 mg/dL (8.5-10.1)
[2024-07-14 08:43] LABS: BLOOD UREA NITROGEN 36.5 mg/dL (7-18)
[2024-07-14 08:46] LABS: CREATININE 1.1 mg/dL (0.55-1.3)
[2024-07-14] MEDS: ALBUTEROL SO4 2.5/IPRATROPIUM 0.5 INH SOL 3 ML VIAL.NEB. NEB SCH (16:29)
[2024-07-15 08:45] LABS: BASO % 0.4 % (0-2.0); EOS % 0.4 % (0-4.5); HEMATOCRIT 27.1 % (32.4-45.2); HEMOGLOBIN 8.7 GM/dL (10.7-15.3); LYMPH % 7.4 % (8-40); MCH 26.7 pg (25.7-33.7); MCHC 32.1 g/dl (32.0-36.0); MEAN PLT VOLUME 8.6 fl (7.5-11.1); MONO % 8.4 % (3.8-10.2); NEUT % 83.4 % (42.8-82.8); PLATELET COUNT 258 10^3/uL (134-434); RBC 3.27 M/mm3 (3.60-5.2); RDW 16.4 % (11.6-15.6); WHITE BLOOD COUNT 11.2 K/mm3 (4.0-10.0)
[2024-07-15 08:59] LABS: POTASSIUM 4.1 mmol/L (3.5-5.1)
[2024-07-15 09:11] LABS: BLOOD UREA NITROGEN 37.8 mg/dL (7-18); CALCIUM 9.2 mg/dL (8.5-10.1)
[2024-07-15 09:14] LABS: CREATININE 1.2 mg/dL (0.55-1.3)
[2024-07-16 09:33] LABS: BASO % 0.3 % (0-2.0); EOS % 1.7 % (0-4.5); HEMATOCRIT 26.7 % (32.4-45.2); HEMOGLOBIN 8.6 GM/dL (10.7-15.3); LYMPH % 12.3 % (8-40); MCH 26.8 pg (25.7-33.7); MCHC 32.3 g/dl (32.0-36.0); MEAN CELL VOLUME 82.7 fl (80-96); MEAN PLT VOLUME 7.7 fl (7.5-11.1); MONO % 11.1 % (3.8-10.2); NEUT % 74.6 % (42.8-82.8); PLATELET COUNT 284 10^3/uL (134-434); RBC 3.23 M/mm3 (3.60-5.2); RDW 16.6 % (11.6-15.6); WHITE BLOOD COUNT 9.6 K/mm3 (4.0-10.0)
[2024-07-16 09:56] LABS: POTASSIUM 3.6 mmol/L (3.5-5.1)
[2024-07-16 09:57] LABS: BLOOD UREA NITROGEN 32.4 mg/dL (7-18)
[2024-07-16 10:00] LABS: CREATININE 1.1 mg/dL (0.55-1.3)
[2024-07-16] MEDS: KCL 10 MEQ IVPB 10 MEQ/100 ML INFUS.BAG IVPB SCH (10:45)
[2024-07-16] MEDS: LACTATED RINGERS SOLUTION 1,000 ML/1,000 ML INFUS.BAG IV SCH (21:00)
[2024-07-17] MEDS: ACETAMINOPHEN 1000 MG/100 ML BAG IVPB ONE (00:54)
[2024-07-17 07:54] LABS: BASO % 0.5 % (0-2.0); EOS % 3.6 % (0-4.5); HEMATOCRIT 24.4 % (32.4-45.2); HEMOGLOBIN 8.1 GM/dL (10.7-15.3); LYMPH % 15.9 % (8-40); MCH 27.4 pg (25.7-33.7); MCHC 33.2 g/dl (32.0-36.0); MEAN CELL VOLUME 82.7 fl (80-96); MEAN PLT VOLUME 7.9 fl (7.5-11.1); MONO % 13.3 % (3.8-10.2); NEUT % 66.7 % (42.8-82.8); PLATELET COUNT 294 10^3/uL (134-434); RBC 2.96 M/mm3 (3.60-5.2); RDW 16.3 % (11.6-15.6); WHITE BLOOD COUNT 7.1 K/mm3 (4.0-10.0)
[2024-07-17 08:12] LABS: POTASSIUM 3.8 mmol/L (3.5-5.1)
[2024-07-17 08:17] LABS: ALBUMIN 2.3 g/dl (3.4-5.0); BLOOD UREA NITROGEN 28.5 mg/dL (7-18); CALCIUM 8.8 mg/dL (8.5-10.1)
[2024-07-17 08:21] LABS: CREATININE 1.1 mg/dL (0.55-1.3)
[2024-07-17 08:22] LABS: BILIRUBIN,TOTAL 0.4 mg/dL (0.2-1); TOT PROT 5.4 g/dl (6.4-8.2)
[2024-07-17] MEDS: POLYETHYLENE GLYCOL (HEALTHYLAX) 3350 17 GM PACKET PO SCH (15:30)
[2024-07-18 07:46] LABS: BASO % 0.3 % (0-2.0); EOS % 2.7 % (0-4.5); HEMATOCRIT 24.4 % (32.4-45.2); HEMOGLOBIN 7.9 GM/dL (10.7-15.3); LYMPH % 15.9 % (8-40); MCH 27.1 pg (25.7-33.7); MCHC 32.4 g/dl (32.0-36.0); MEAN CELL VOLUME 83.7 fl (80-96); MEAN PLT VOLUME 7.6 fl (7.5-11.1); MONO % 13.5 % (3.8-10.2); NEUT % 67.6 % (42.8-82.8); PLATELET COUNT 315 10^3/uL (134-434); RBC 2.91 M/mm3 (3.60-5.2); RDW 16.2 % (11.6-15.6); WHITE BLOOD COUNT 7.9 K/mm3 (4.0-10.0)
[2024-07-18 08:11] LABS: POTASSIUM 3.9 mmol/L (3.5-5.1)
[2024-07-18 08:23] LABS: BLOOD UREA NITROGEN 25.8 mg/dL (7-18)
[2024-07-18 08:26] LABS: CREATININE 0.9 mg/dL (0.55-1.3)
[2024-07-18] MEDS: oxyCODONE HCL 5 MG TABLET PO PRN (10:00)
[2024-07-18] MEDS: IRON SUCROSE INJECTION 200 MG in SODIUM CHLORIDE 100 ML IVPB ONE (10:04)
[2024-07-18] MEDS: PIPERACILLIN/TAZOB 3.375 GM 3.375 GM in DEXTROSE 5%-WATER - 50 ML IVPB SCH (10:57)
[2024-07-18] MEDS: POTASSIUM CHLORIDE 10 MEQ in DEXTROSE 5%-WATER - 1,000 ML IV SCH (14:19)
[2024-07-19] MEDS: ALBUTEROL SO4 2.5/IPRATROPIUM 0.5 INH SOL 3 ML VIAL.NEB. NEB ONE (04:45)
[2024-07-19 08:18] LABS: BASO % 0.3 % (0-2.0); EOS % 2.4 % (0-4.5); HEMATOCRIT 23.5 % (32.4-45.2); HEMOGLOBIN 7.7 GM/dL (10.7-15.3); LYMPH % 13.5 % (8-40); MCH 27.3 pg (25.7-33.7); MCHC 32.7 g/dl (32.0-36.0); MEAN CELL VOLUME 83.6 fl (80-96); MEAN PLT VOLUME 7.4 fl (7.5-11.1); MONO % 13.2 % (3.8-10.2); NEUT % 70.6 % (42.8-82.8); PLATELET COUNT 348 10^3/uL (134-434); RBC 2.81 M/mm3 (3.60-5.2); RDW 15.6 % (11.6-15.6); WHITE BLOOD COUNT 10.1 K/mm3 (4.0-10.0)
[2024-07-19 08:27] LABS: POTASSIUM 4.7 mmol/L (3.5-5.1)
[2024-07-19 08:59] LABS: CALCIUM 9.1 mg/dL (8.5-10.1)
[2024-07-19 09:00] LABS: ALBUMIN 2.2 g/dl (3.4-5.0); BLOOD UREA NITROGEN 24.6 mg/dL (7-18)
[2024-07-19 09:03] LABS: CREATININE 1.1 mg/dL (0.55-1.3)
[2024-07-19 09:04] LABS: BILIRUBIN,TOTAL 0.3 mg/dL (0.2-1)
[2024-07-19 09:05] LABS: TOT PROT 5.3 g/dl (6.4-8.2)
[2024-07-19] MEDS: FUROSEMIDE 40 MG/4 ML INJECTABLE VIAL IVPUSH ONE ×2 (17:35→19:39)
[2024-07-20 08:15] LABS: BASO % 0.4 % (0-2.0); EOS % 4.6 % (0-4.5); HEMATOCRIT 28.4 % (32.4-45.2); HEMOGLOBIN 9.5 GM/dL (10.7-15.3); LYMPH % 14.3 % (8-40); MCH 28.3 pg (25.7-33.7); MCHC 33.5 g/dl (32.0-36.0); MEAN CELL VOLUME 84.4 fl (80-96); MEAN PLT VOLUME 7.2 fl (7.5-11.1); MONO % 13.2 % (3.8-10.2); NEUT % 67.5 % (42.8-82.8); PLATELET COUNT 406 10^3/uL (134-434); RBC 3.37 M/mm3 (3.60-5.2); RDW 15.8 % (11.6-15.6); WHITE BLOOD COUNT 10.4 K/mm3 (4.0-10.0)
[2024-07-20 08:26] LABS: POTASSIUM 4.5 mmol/L (3.5-5.1)
[2024-07-20 08:28] LABS: ALBUMIN 2.4 g/dl (3.4-5.0); BLOOD UREA NITROGEN 23.8 mg/dL (7-18); CALCIUM 9.2 mg/dL (8.5-10.1)
[2024-07-20 08:29] LABS: MAGNESIUM 1.8 mg/dL (1.8-2.4)
[2024-07-20 08:31] LABS: CREATININE 1.1 mg/dL (0.55-1.3)
[2024-07-20 08:32] LABS: PHOSPHOROUS 3.8 mg/dL (2.5-4.9)
[2024-07-20 08:33] LABS: BILIRUBIN,TOTAL 0.4 mg/dL (0.2-1); TOT PROT 5.7 g/dl (6.4-8.2)
[2024-07-21] MEDS: ACETAMINOPHEN 325 MG TABLET (FP) PO PRN (06:31)
[2024-07-21 08:43] LABS: BASO % 0.8 % (0-2.0); EOS % 3.4 % (0-4.5); HEMATOCRIT 28.2 % (32.4-45.2); HEMOGLOBIN 9.3 GM/dL (10.7-15.3); LYMPH % 16.8 % (8-40); MCH 28.2 pg (25.7-33.7); MCHC 33.1 g/dl (32.0-36.0); MEAN CELL VOLUME 85.1 fl (80-96); MEAN PLT VOLUME 7.3 fl (7.5-11.1); MONO % 11.1 % (3.8-10.2); NEUT % 67.9 % (42.8-82.8); PLATELET COUNT 454 10^3/uL (134-434); RBC 3.31 M/mm3 (3.60-5.2); RDW 16.3 % (11.6-15.6); WHITE BLOOD COUNT 10.7 K/mm3 (4.0-10.0)
[2024-07-21 08:54] LABS: POTASSIUM 4.9 mmol/L (3.5-5.1)
[2024-07-21 09:07] LABS: CALCIUM 9.5 mg/dL (8.5-10.1)
[2024-07-21 09:08] LABS: BLOOD UREA NITROGEN 25.7 mg/dL (7-18)
[2024-07-21] MEDS: metoPROLOL SUCCINATE 25 MG TAB.SR.24H (FP) PO SCH (14:35)
[2024-07-21] MEDS: ATORVASTATIN CA 40 MG TABLET (FP) PO SCH (21:32)
[2024-07-22] MEDS: amLODIPine BESYLATE 5 MG TABLET (FP) PO SCH (09:38)
[2024-07-22] MEDS: CLOPIDOGREL BISULFATE 75 MG TABLET (FP) PO SCH (09:38)
[2024-07-22] MEDS: LOSARTAN POTASSIUM 50 MG TABLET PO SCH (09:38)
[2024-07-22] MEDS: FUROSEMIDE 20 MG TABLET (FP) PO SCH (09:38)
[2024-07-22] MEDS ORDERED: ENALAPRIL MALEATE 10 MG TABLET PO SCH (10:00)
[2024-07-22] MEDS: POTASSIUM CHLORIDE 10 MEQ in SODIUM CHLORIDE 0.45% 1,000 ML IVPB SCH (11:09)
[2024-07-23] MEDS: amLODIPine BESYLATE 5 MG TABLET (FP) PO SCH (09:28)
[2024-07-23 10:32] LABS: BASO % 0.7 % (0-2.0); HEMATOCRIT 28.1 % (32.4-45.2); HEMOGLOBIN 9.3 GM/dL (10.7-15.3); LYMPH % 12.7 % (8-40); MCH 28.3 pg (25.7-33.7); MCHC 33.2 g/dl (32.0-36.0); MEAN CELL VOLUME 85.1 fl (80-96); MONO % 9.6 % (3.8-10.2); PLATELET COUNT 453 10^3/uL (134-434); RDW 16.3 % (11.6-15.6); WHITE BLOOD COUNT 8.8 K/mm3 (4.0-10.0)
[2024-07-24 07:32] LABS: POTASSIUM 4.9 mmol/L (3.5-5.1)
[2024-07-24 07:36] LABS: BLOOD UREA NITROGEN 28.1 mg/dL (7-18); CALCIUM 9.1 mg/dL (8.5-10.1)
[2024-07-24 07:38] LABS: ALBUMIN 2.5 g/dl (3.4-5.0)
[2024-07-24 07:40] LABS: CREATININE 1.1 mg/dL (0.55-1.3)
[2024-07-24 07:41] LABS: BILIRUBIN,TOTAL 0.3 mg/dL (0.2-1); TOT PROT 5.5 g/dl (6.4-8.2)
[2024-07-24 10:18] VITALS: TEMP 98.2
[2024-07-24 15:16] VITALS: BP 142/77; PULSE 96; RESP 20
== END 2024-07-24 15:41 | DRG 329 ==
LOC: JER 01:13 → JERBED 05:21 → J4W 11:41
PROVIDERS: ADMIT Internal Medicine; ATTEND Family Medicine
PROC: 0DB80ZZ Excision of Small Intestine, Open Approach (ICD-10-PCS; 2024-07-12)
PROC: 0WQF0ZZ Repair Abdominal Wall, Open Approach (ICD-10-PCS; principal; 2024-07-12 06:00)
DX: K46.0 Unspecified abdominal hernia with obstruction, without gangrene (principal); K56.2 Volvulus; K55.8 Other vascular disorders of intestine; E87.20 Acidosis, unspecified; I69.351 Hemiplegia and hemiparesis following cerebral infarction affecting right dominant side; N39.0 Urinary tract infection, site not specified; N17.9 Acute kidney failure, unspecified; R78.81 Bacteremia; I12.9 Hypertensive chronic kidney disease with stage 1 through stage 4 chronic kidney disease, or unspecified chronic kidney disease; N18.9 Chronic kidney disease, unspecified; E78.5 Hyperlipidemia, unspecified; R00.0 Tachycardia, unspecified; R41.0 Disorientation, unspecified; R01.1 Cardiac murmur, unspecified; I35.0 Nonrheumatic aortic (valve) stenosis; K21.9 Gastro-esophageal reflux disease without esophagitis; J45.909 Unspecified asthma, uncomplicated; D64.9 Anemia, unspecified; B95.2 Enterococcus as the cause of diseases classified elsewhere
CPT/HCPCS: 36415; 36430; 70450-TC; 71045-TC-FY; 71275-TC; 74018-TC-FY; 74177-TC; 80048; 80053; 81003; 83540; 83550; 83605; 83690; 83735; 84100; 84484; 85025; 85610; 85730; 86850; 86900; 86901; 86922; 87040; 87086; 87186; 88307-TC; 93005; 93010; 93306-TC; 94640; 94760; 97116-GP; 97162-GP; 99285-25; J0131; J1644; J1756; P9058; Q9967